=== PATIENT | male | born 1985 | race African-American/Black ===

== ENCOUNTER 2023-08-09 19:36 | Emergency (ER) | payer MEDICAID ==
[~2023-08-09] VITALS: Ht 170.2 cm; Wt 65.0 kg
[2023-08-09 20:00] VITALS: TEMP 98; O2SAT 100
[2023-08-09 23:15] VITALS: BP 160/97; PULSE 90; RESP 18
[2023-08-09] MEDS: KETOROLAC 15MG/ML VIAL IM ONE (23:15)
[2023-08-10] MEDS ORDERED: TETRACAINE 0.5% OPHTH DROPS 4ML EACHEYE ONE (00:30)
[2023-08-10] MEDS ORDERED: TIMOLOL MALEATE 0.25% OPHTH DROPS 5ML RIGHTEYE SCH (01:00)
[2023-08-10 02:11] LABS: CLARITY URINE CLEAR (CLEAR); COLOR URINE DARK YELLOW (YELLOW); GLUCOSE URINE NEGATIVE (NEGATIVE); KETONES URINE NEGATIVE (NEGATIVE); LEUKOCYTE ESTERASE URINE NEGATIVE (NEGATIVE); NITRITE URINE NEGATIVE (NEGATIVE); OCCULT BLOOD URINE 1+ (NEGATIVE); PH URINE 5.5 (4.5-8.0); PROTEIN URINE TRACE (NEGATIVE); SPECIFIC GRAVITY URINE 1.038 (1.005-1.030)
[2023-08-10] MEDS ORDERED: TIMO5DRO40 EACHEYE (02:27)
[2023-08-10 03:56] LABS: RBC URINE 0-2 /hpf (0-2); WBC URINE 0-2 /hpf (0-2)
[2023-08-10 03:57] LABS: SQUAMOUS EPITHELIAL CELL URINE FEW /lpf (RARE/1+)
[2023-08-10 03:59] LABS: BACTERIA URINE NONE SEEN; CALCIUM OXALATE CRYSTALS URINE 1+ /lpf
[2023-08-10] MEDS ORDERED: DOXY100C5 MT (09:21)
== END 2023-08-10 03:04 | disposition home or self-care (01) ==
LOC: ER 19:36
DX: H40.89 Other specified glaucoma (principal); H26.8 Other specified cataract; B34.9 Viral infection, unspecified; J45.909 Unspecified asthma, uncomplicated; I10 Essential (primary) hypertension
CPT/HCPCS: 96372; 99283; 81003; J1885; Z7610

== ENCOUNTER 2023-08-10 03:11 | Emergency (ER) | payer MEDICAID ==
[~2023-08-10] VITALS: Ht 172.7 cm; Wt 82.0 kg
[~2023-08-10 03:11] MED LIST: TIMO5DRO40 EACHEYE
[2023-08-10 03:34] VITALS: BP 124/72; PULSE 82; RESP 18; TEMP 98.2; O2SAT 99
[2023-08-10] MEDS: ACETAMINOPHEN 325MG TABLET PO ONE (09:21)
[2023-08-10] MEDS ORDERED: DOXY100C5 MT (09:21)
[2023-08-10] MEDS: TETANUS, DIPHTHERIA, PERTUSSIS VAC/PF 0.5ML (>10YR OLD) IM ONE (09:21)
[2023-08-10] MEDS: CEFTRIAXONE SODIUM 500MG VIAL IM ONE (09:21)
[2023-08-10 09:34] LABS: CLARITY URINE CLOUDY (CLEAR); COLOR URINE DARK YELLOW (YELLOW); GLUCOSE URINE NEGATIVE (NEGATIVE); KETONES URINE TRACE (NEGATIVE); LEUKOCYTE ESTERASE URINE NEGATIVE (NEGATIVE); NITRITE URINE NEGATIVE (NEGATIVE); OCCULT BLOOD URINE NEGATIVE (NEGATIVE); PH URINE 5.5 (4.5-8.0); PROTEIN URINE 2+ (NEGATIVE); SPECIFIC GRAVITY URINE 1.028 (1.005-1.030)
[2023-08-10 09:49] LABS: BACTERIA URINE TRACE; RBC URINE 0-2 /hpf (0-2); SQUAMOUS EPITHELIAL CELL URINE 2+ /lpf (RARE/1+); YEAST URINE NONE SEEN
[2023-08-14 09:10] LABS: CHLAMYDIA TRACHOMATIS NAA Negative (Negative); NEISSERIA GONORRHOEAE NAA Negative (Negative)
== END 2023-08-10 10:24 | disposition home or self-care (01) ==
LOC: ER 03:11
DX: S80.11XD Contusion of right lower leg, subsequent encounter (principal); J45.909 Unspecified asthma, uncomplicated; I10 Essential (primary) hypertension; W54.0XXD Bitten by dog, subsequent encounter
CPT/HCPCS: 99284; 86592; 87491; 87591; 81003; 36415; 90715; 90471; 96372; J0696